=== PATIENT | male | born 2000 | race Caucasian/White ===

== ENCOUNTER → 2018-01-24 | Outpatient (CLI) | payer OTHER ==
--- NOTE | 2018-01-24 10:53 | DIAGNOSTIC IMAGING REPORT ---
(TESTICULAR) SCROTUM-CONT CLINICAL HISTORY: 17 years-old Male with N50.9. Acute scrotal pain COMPARISON STUDY: None available TECHNIQUE: Real-time, grayscale, and color Doppler sonography of the testes and scrotum is performed. Images are reviewed in the transverse and longitudinal planes. FINDINGS: RIGHT HEMISCROTUM: The right testis measures 3.6 x 2.0 x 2.3 cm and the parenchyma appears unremarkable. No intratesticular mass is seen. Normal-appearing arterial inflow is present within the right testicle. The right epididymal head appears normal. There is a 0.7 cm mildly complex hypoechoic focus of the right epididymal tail without increased vascularity identified. No large hydrocele is identified. Small varicocele. LEFT HEMISCROTUM: The left testis measures 3.4 x 1.9 x 2.4 cm and the parenchyma appears unremarkable. No intratesticular mass is seen. Normal-appearing arterial inflow is present within the left testicle. The left epididymal head appears normal. No hydrocele is identified. Small varicocele. IMPRESSION: 1. Unremarkable sonographic appearance of the bilateral testicles without evidence of testicular mass or torsion. 2. Small bilateral varicoceles. 3. Mildly complex 0.7 cm hypoechoic structure of the right epididymal tail may reflect an epididymal cyst. The above report was generated using voice recognition software. It may contain grammatical, syntax or spelling errors. Electronically signed by: Willie Parker M.D. 01/24/2018 10:52 AM Dictated Date/Time: 01/24/2018 10:49 AM
== END | disposition home or self-care (01) ==
LOC: C.ULTRBC 10:17
PROVIDERS: ATTEND Urology
DX: N50.9 Disorder of male genital organs, unspecified (principal)